=== PATIENT | female | born 1980 | race Caucasian/White ===

== ENCOUNTER 2016-10-06 21:54 | Emergency (ER) | payer OTHER ==
--- NOTE | 2016-10-06 22:51 | ED NURSING NOTES ---
Clinical Report - Nurses [facility] [address] [place] [address] 10/06/2016 21:58 Patient: STEVEN WEIR TRIAGE Triage time 22:Oct 06 2016. Acuity: LEVEL 3. Chief Complaint: (c section site is bleeding). Alert. No acute distress. --22:15 Natalia Lynn R.N. 22:05 10/06/16. BP: 132/93. HR: 60. RR: 18. O2 saturation: 98%. Temp: 97.4 F. Pain level now 0/10. --22: Natalia Lynn R.N. Weight: 124.7 kg stated. Height/Length: 63 inches Per Patient. BMI: 48.7. --22: Natalia Lynn R.N. Medications Percocet Oral 5/325 mg. --22: Natalia Lynn R.N. Ibuprofen Oral 800 mg. --22:08 Natalia Lynn R.N. Medication/allergy information source: the patient. --22: Natalia Lynn R.N. Allergies No Known Drug Allergy. --22:08 Natalia Lynn R.N. History Arrived by private vehicle. Historian: patient. Primary physician ([facility]). ( 1 week ago - scheduled at [facility]. Noticed some bleeding at the lower incision site tonight while showering. Pt stated that today was the most active she's been. Shopping, lifting, and more active today. [place] some shortness of breath with activity. No pain.). This started just prior to arrival. No fever. 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 PAST MEDICAL HX: OB history: G 2; P 2; Ab 0. SOCIAL HX: Never smoker. No alcohol use or drug use. No infectious disease exposure. FALL RISK ASSESSMENT: Fall risk assessment completed. No fall risk identified. NUTRITIONAL RISK ASSESSMENT: The nutritional risk assessment revealed no deficiencies. FUNCTIONAL ASSESSMENT: Functional assessment: no impairments noted. LEARNING NEEDS ASSESSMENT: The learning needs assessment revealed no barriers. SKIN INTEGRITY ASSESSMENT: Skin integrity risk assessment completed. No skin integrity risk identified. --22:15 Natalia Lynn R.N. ADDITIONAL SURGERIES: . --22:08 Natalia Lynn R.N. Interventions ID band on patient. To room. --22:15 Natalia Lynn R.N. PHYSICAL ASSESSMENT Ambulatory to room. GENERAL / NEURO / PSYCH: Oriented X 4. Appears in no acute distress. RESPIRATORY: Respirations not labored. CVS: Capillary refill less than 2 seconds. EXTREMITIES: Pedal edema is present. SKIN: ( incision site on the left corner has some bleeding when area is pressed on or pannis is lifted tight. Steri Strips intact. Some are soaked in blood. Removed the towel that was in place, some serosanguinous drainage, not bright red blood. Fresh towel placed to monitor the amount of bleeding. Pt states this is her 3rd towl that she has used at home. This is now towel #4 that was applied in the room.). --22:29 Natalia Lynn R.N. NURSING PROGRESS NOTES ( Dr. Russell and Natalia, RN assessed pt's bleeding site.). --22:29 Natalia Lynn R.N. ( Dr. Russell spoke with Dr. Vazquez who is covering for pt's Surgeon at [facility]. Dr. Vazquez is informed of pt's ER visit since pt spoke with him also, Pt will keep gauze in the incision site and follow up with Surgeon tomorrow and Dr. Vazquez suggested.). --22:58 Natalia Lynn R.N. ( 4x4 guaze dressings applied to site.). --22:59 Natalia Lynn R.N. DISPOSITION / DISCHARGE Departure time: 23:02 Oct 06 2016. --23:02 Natalia Lynn R.N. Condition at departure: improved and stable. No learning barriers present. Discharge instructions provided and reviewed with the patient. Patient verbalized understanding. Written instructions provided in Ukrainian. The patient was discharged by the physician. She was discharged home and accompanied by spouse. She left the Emergency Department ambulatory and via private vehicle. Spouse driving. --23:03 Natalia Lynn R.N. Locked/Released at 10/06/2016 23:03 by Natalia Lynn R.N.
--- NOTE | 2016-10-06 22:51 | ED NURSING NOTES ---
Clinical Report - Nurses [facility] [address] [place] [address] 10/06/2016 21:58 Patient: STEVEN WEIR TRIAGE Triage time 22:Oct 06 2016. Acuity: LEVEL 3. Chief Complaint: (c section site is bleeding). Alert. No acute distress. --22:15 Natalia Lynn R.N. 22:05 10/06/16. BP: 132/93. HR: 60. RR: 18. O2 saturation: 98%. Temp: 97.4 F. Pain level now 0/10. --22: Natalia Lynn R.N. Weight: 124.7 kg stated. Height/Length: 63 inches Per Patient. BMI: 48.7. --22: Natalia yLnn R.N. Medications Percocet Oral 5/325 mg. --22: Natalia Lynn R.N. Ibuprofen Oral 800 mg. --22:08 Natalia Lynn R.N. Medication/allergy information source: the patient. --22: Natalia Lynn R.N. Allergies No Known Drug Allergy. --22:08 Natalia Lynn R.N. History Arrived by private vehicle. Historian: patient. Primary physician ([facility]). ( 1 week ago - scheduled at [facility]. Noticed some bleeding at the lower incision site tonight while showering. Pt stated that today was the most active she's been. Shopping, lifting, and more active today. [place] some shortness of breath with activity. No pain.). This started just prior to arrival. No fever. 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 PAST MEDICAL HX: OB history: G 2; P 2; Ab 0. SOCIAL HX: Never smoker. No alcohol use or drug use. No infectious disease exposure. FALL RISK ASSESSMENT: Fall risk assessment completed. No fall risk identified. NUTRITIONAL RISK ASSESSMENT: The nutritional risk assessment revealed no deficiencies. FUNCTIONAL ASSESSMENT: Functional assessment: no impairments noted. LEARNING NEEDS ASSESSMENT: The learning needs assessment revealed no barriers. SKIN INTEGRITY ASSESSMENT: Skin integrity risk assessment completed. No skin integrity risk identified. --22:15 Natalia Lynn R.N. ADDITIONAL SURGERIES: . --22:08 Natalia Lynn R.N. Interventions ID band on patient. To room. --22:15 Natalia Lynn R.N. PHYSICAL ASSESSMENT Ambulatory to room. GENERAL / NEURO / PSYCH: Oriented X 4. Appears in no acute distress. RESPIRATORY: Respirations not labored. CVS: Capillary refill less than 2 seconds. EXTREMITIES: Pedal edema is present. SKIN: ( incision site on the left corner has some bleeding when area is pressed on or pannis is lifted tight. Steri Strips intact. Some are soaked in blood. Removed the towel that was in place, some serosanguinous drainage, not bright red blood. Fresh towel placed to monitor the amount of bleeding. Pt states this is her 3rd towl that she has used at home. This is now towel #4 that was applied in the room.). --22:29 Naatlia Lynn R.N. NURSING PROGRESS NOTES ( Dr. Russell and Natalia, RN assessed pt's bleeding site.). --22:29 Natalia Lynn R.N. ( Dr. Russell spoke with Dr. Vazquez who is covering for pt's Surgeon at [facility]. Dr. Vazquez is informed of pt's ER visit since pt spoke with him also, Pt will keep gauze in the incision site and follow up with Surgeon tomorrow and Dr. Vazquez suggested.). --22:58 Natalia Lynn R.N. ( 4x4 guaze dressings applied to site.). --22:59 Natalia Lynn R.N. DISPOSITION / DISCHARGE Departure time: 23:02 Oct 06 2016. --23:02 Natalia Lynn R.N. Condition at departure: improved and stable. No learning barriers present. Discharge instructions provided and reviewed with the patient. Patient verbalized understanding. Written instructions provided in Azeri. The patient was discharged by the physician. She was discharged home and accompanied by spouse. She left the Emergency Department ambulatory and via private vehicle. Spouse driving. --23:03 Natalia Lynn R.N. Locked/Released at 10/06/2016 23:03 by Natalia Lynn R.N.
--- NOTE | 2016-10-06 22:51 | ED CLINICAL REPORT ---
Clinical Report - Physicians/Mid Levels [facility] [address] [place] [address] 10/06/2016 21:58 Patient: STEVEN WEIR Time Seen: 22:05. Arrived- By private vehicle. Historian- patient. HISTORY OF PRESENT ILLNESS Chief Complaint: WOUND RECHECK. (the patient underwent section one week ago at [place]. Her OB provider was Dr. Chen. she has been doing well since the procedure denies any pain, describes what sounds like normal lochia, and is otherwise feeling well. She has had some mild to moderate pelvic cramping but this is improving and the Percocet that she was prescribed worked well when she needed it initially. She is here tonight because she has noticed some dark fluid draining from the left edge of her wound. She denies any increased redness or warmth of the skin and has not seen any pus draining from the wound. she denies fever nausea vomiting and diarrhea She is breast-feeding.). REVIEW OF SYSTEMS No chills, fever, sweats, calf pain or chest pain. No cough, difficulty breathing, pedal edema, palpitations or abdominal pain. No constipation, diarrhea, nausea, vomiting or urinary problems. All systems otherwise negative, except as recorded above. PAST HISTORY [employer] - [employer]. SOCIAL HISTORY Never smoker. No alcohol use or drug use. FAMILY HISTORY No significant family medical history. ADDITIONAL NOTES The nursing notes have been reviewed. PHYSICAL EXAM Vital Signs: 10/06/2016 22:05 BP: 132/93. HR: 60. RR: 18. O2 saturation: 98%. Temp: 97.4 F. Have been reviewed. Appearance: Alert. Head: No swelling of head. Eyes: Pupils equal, round and reactive to light. ENT: Pharynx normal. Neck: Painless ROM. CVS: Heart sounds normal. Respiratory: Breath sounds normal. Abdomen: Soft and nontender. Obese. Back: ROM normal. Skin: Single deep oozing incision- The surgical wound appears to be healing well. There are no signs of infection. It appears to be a normal section wound that was repaired with a subcuticular stitch. There is no evidence of wound dehiscence. There is a medium sized area of ecchymosis above the wound on the left and when palpating over this 3-5 cc of dark serosanguineous fluid comes from the wound. No erythema, tenderness or increased warmth. Extremities: Normal inspection. PROGRESS AND PROCEDURES Course of Care: Patient is stable. Consult obtained. Dr. Vazquez for Dr. Chen. Case discussed. Phone consult only. Will see patient in the clinic tomorrow. Patient/family counseled. Old medical records ordered. Old records unavailable. Disposition: Discharged. Condition: stable. CLINICAL IMPRESSION Seroma with drainage. INSTRUCTIONS Warnings: GENERAL WARNINGS: Return or contact your physician immediately if your condition worsens or changes unexpectedly, if not improving as expected, or if other problems arise. Follow-up: Follow up with your doctor Dr. Chen tomorrow. Call for an appointment. Understanding of the discharge instructions verbalized by patient and family. (Electronically signed by John Russell MD 10/07/2016 0:15)
--- NOTE | 2016-10-06 22:51 | ED CLINICAL REPORT ---
Clinical Report - Physicians/Mid Levels [facility] [address] [place] [place] [address] 10/06/2016 21:58 Patient: STEVEN WEIR Time Seen: 22:05. Arrived- By private vehicle. Historian- patient. HISTORY OF PRESENT ILLNESS Chief Complaint: WOUND RECHECK. (the patient underwent section one week ago at [place]. Her OB provider was Dr. Chen. she has been doing well since the procedure denies any pain, describes what sounds like normal lochia, and is otherwise feeling well. She has had some mild to moderate pelvic cramping but this is improving and the Percocet that she was prescribed worked well when she needed it initially. She is here tonight because she has noticed some dark fluid draining from the left edge of her wound. She denies any increased redness or warmth of the skin and has not seen any pus draining from the wound. she denies fever nausea vomiting and diarrhea She is breast-feeding.). REVIEW OF SYSTEMS No chills, fever, sweats, calf pain or chest pain. No cough, difficulty breathing, pedal edema, palpitations or abdominal pain. No constipation, diarrhea, nausea, vomiting or urinary problems. All systems otherwise negative, except as recorded above. 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 SOCIAL HISTORY Never smoker. No alcohol use or drug use. FAMILY HISTORY No significant family medical history. ADDITIONAL NOTES The nursing notes have been reviewed. PHYSICAL EXAM Vital Signs: 10/06/2016 22:05 BP: 132/93. HR: 60. RR: 18. O2 saturation: 98%. Temp: 97.4 F. Have been reviewed. Appearance: Alert. Head: No swelling of head. Eyes: Pupils equal, round and reactive to light. ENT: Pharynx normal. Neck: Painless ROM. CVS: Heart sounds normal. Respiratory: Breath sounds normal. Abdomen: Soft and nontender. Obese. Back: ROM normal. Skin: Single deep oozing incision- The surgical wound appears to be healing well. There are no signs of infection. It appears to be a normal section wound that was repaired with a subcuticular stitch. There is no evidence of wound dehiscence. There is a medium sized area of ecchymosis above the wound on the left and when palpating over this 3-5 cc of dark serosanguineous fluid comes from the wound. No erythema, tenderness or increased warmth. Extremities: Normal inspection. PROGRESS AND PROCEDURES Course of Care: Patient is stable. Consult obtained. Dr. Vazquez for Dr. Chen. Case discussed. Phone consult only. Will see patient in the clinic tomorrow. Patient/family counseled. Old medical records ordered. Old records unavailable. Disposition: Discharged. Condition: stable. CLINICAL IMPRESSION Seroma with drainage. INSTRUCTIONS Warnings: GENERAL WARNINGS: Return or contact your physician immediately if your condition worsens or changes unexpectedly, if not improving as expected, or if other problems arise. Follow-up: Follow up with your doctor Dr. Chen tomorrow. Call for an appointment. Understanding of the discharge instructions verbalized by patient and family. (Electronically signed by John Russell MD 10/07/2016 0:15)
--- NOTE | 2016-10-07 00:16 | ED MAR SUMMARY ---
..... Medication Administration Record [facility] [address] [place] [address] Patient: STEVEN WEIR Visit ID: [id number] 36y, F Weight: 124.7 kg Height/Length: 63 in BMI: 48.7 ALLERGIES: No Known Drug Allergy
--- NOTE | 2016-10-07 00:16 | ED MED RECONCILIATION SUMMARY ---
Patient: STEVEN WEIR Medication Reconciliation Report [facility] VisitID: [id number] [address] [place] [address] 36y, F Registration Date/Time: 10/06/2016 Weight: 124.7 kg Height/Length: 63 in. BMI: 48.7 ALLERGIES: No Known Drug Allergy The patient's Home Medications are listed below: THE FOLLOWING MEDICATIONS NEED TO BE RECONCILED: Ibuprofen Oral 800 mg Percocet Oral 5/325 mg The source(s) of the original Home Medication information: patient The following Medications were given to the patient in the Emergency Department: None. The following Medications were prescribed to the patient: None.
--- NOTE | 2016-10-07 00:16 | ED DISCHARGE INSTRUCTIONS ---
Patient: STEVEN WEIR General Instructions [facility] VisitID: [id number] [address] [place] [address] 36y, F Registration Date/Time: 10/06/2016 Seroma with drainage. INSTRUCTIONS Warnings: GENERAL WARNINGS: Return or contact your physician immediately if your condition worsens or changes unexpectedly, if not improving as expected, or if other problems arise. Follow-up: Follow up with your doctor Dr. Chen tomorrow. Call for an appointment. Understanding of the discharge instructions verbalized by patient and family. (Electronically signed by John Russell MD 10/07/2016 0:15)
--- NOTE | 2016-10-07 00:16 | ED MED RECONCILIATION SUMMARY ---
Patient: STEVEN WIER Medication Reconciliation Report [facility] VisitID: [id number] [address] [place] [address] 36y, F Registration Date/Time: 10/06/2016 Weight: 124.7 kg Height/Length: 63 in. BMI: 48.7 ALLERGIES: No Known Drug Allergy The patient's Home Medications are listed below: THE FOLLOWING MEDICATIONS NEED TO BE RECONCILED: Ibuprofen Oral 800 mg Percocet Oral 5/325 mg The source(s) of the original Home Medication information: patient The following Medications were given to the patient in the Emergency Department: None. The following Medications were prescribed to the patient: None.
--- NOTE | 2016-10-07 00:16 | ED MAR SUMMARY ---
..... Medication Administration Record [facility] [address] [place] [address] Patient: STEVEN WEIR Visit ID: [id number] 36y, F Weight: 124.7 kg Height/Length: 63 in BMI: 48.7 ALLERGIES: No Known Drug Allergy
--- NOTE | 2016-10-07 00:16 | ED DISCHARGE INSTRUCTIONS ---
Patient: STEVEN WEIR General Instructions [facility] VisitID: [id number] [address] [place] [address] 36y, F Registration Date/Time: 10/06/2016 Seroma with drainage. INSTRUCTIONS Warnings: GENERAL WARNINGS: Return or contact your physician immediately if your condition worsens or changes unexpectedly, if not improving as expected, or if other problems arise. Follow-up: Follow up with your doctor Dr. Chen tomorrow. Call for an appointment. Understanding of the discharge instructions verbalized by patient and family. (Electronically signed by John Russell MD 10/07/2016 0:15)
== END 2016-10-06 22:56 | disposition home or self-care (01) ==
LOC: ED SRH 21:54
DX: O90.2 Hematoma of obstetric wound (principal)